=== PATIENT | female | born 1950 | race Caucasian/White ===

== ENCOUNTER 2016-12-02 08:43 | Emergency (ER) | payer MEDICARE | END 2016-12-02 09:10 | disposition home or self-care (01) | LOC: NAV ERS 08:43 | DX: H66.91 Otitis media, unspecified, right ear (principal); E03.9 Hypothyroidism, unspecified; I10 Essential (primary) hypertension; F32.9 Major depressive disorder, single episode, unspecified; Z87.891 Personal history of nicotine dependence; Z79.891 Long term (current) use of opiate analgesic; Z79.899 Other long term (current) drug therapy | CPT/HCPCS: 99282 ==

== ENCOUNTER 2017-01-12 12:13 | Emergency (ER) | payer MEDICARE ==
--- NOTE | 2017-01-12 13:07 | RAD ---
PA AND LATERAL CHEST: History: Cough. FINDINGS: Comparison made with exam of 12-19-14. The heart size is normal. The lungs are well expanded without focal areas of consolidation, pneumoth orax, or pleural effusions. There are post op changes of bilateral shoulder arthroplasty and plate a nd screws in the lower cervical/upper thoracic spine. There are degenerative changes in the thoracic spine. IMPRESSION: No radiographic evidence of acute cardiopulmonary process. POS: [facility]
== END 2017-01-12 13:41 | disposition home or self-care (01) ==
LOC: NAV ERS 12:13
DX: J20.9 Acute bronchitis, unspecified (principal); J06.9 Acute upper respiratory infection, unspecified; E03.9 Hypothyroidism, unspecified; I10 Essential (primary) hypertension; E55.9 Vitamin D deficiency, unspecified; F32.9 Major depressive disorder, single episode, unspecified; Z87.891 Personal history of nicotine dependence; Z79.899 Other long term (current) drug therapy
CPT/HCPCS: 71020; 94640

== ENCOUNTER 2017-08-27 12:01 | Emergency (ER) | payer MEDICARE | END 2017-08-27 13:00 | disposition home or self-care (01) | LOC: NAV ERS 12:01 | DX: M54.12 Radiculopathy, cervical region (principal); I10 Essential (primary) hypertension; E03.9 Hypothyroidism, unspecified; E54 Ascorbic acid deficiency; F41.9 Anxiety disorder, unspecified; F32.9 Major depressive disorder, single episode, unspecified; Z79.891 Long term (current) use of opiate analgesic; Z79.899 Other long term (current) drug therapy | CPT/HCPCS: 96372; J1100; J3010 ==

== ENCOUNTER 2018-01-18 18:53 | Emergency (ER) | payer MEDICARE ==
[2018-01-18 20:15] LABS: Troponin I Less than 0.010 ng/mL (< 0.028)
== END 2018-01-18 20:32 | disposition home or self-care (01) ==
LOC: NAV ERS 18:53
DX: R07.9 Chest pain, unspecified (principal); M79.602 Pain in left arm; I10 Essential (primary) hypertension; E03.9 Hypothyroidism, unspecified; F32.9 Major depressive disorder, single episode, unspecified; Z87.891 Personal history of nicotine dependence; Z79.899 Other long term (current) drug therapy
CPT/HCPCS: 82550; 82553; 84484; 93005

== ENCOUNTER 2018-12-27 10:20 | Emergency (ER) | payer MEDICARE ==
--- NOTE | 2018-12-27 11:16 | RAD ---
RIGHT THUMB 3 VIEWS: Date: 12/27/18 HISTORY: Thumb pain. FINDINGS: No evidence of fracture or dislocation. Mild degenerative changes are seen at the IP joints and first carpometacarpal joint. IMPRESSION: No acute osseous abnormality. POS: AVE
== END 2018-12-27 11:09 | disposition home or self-care (01) ==
LOC: NAV ERS 10:20
DX: S63.601A Unspecified sprain of right thumb, initial encounter (principal); I10 Essential (primary) hypertension; Z87.891 Personal history of nicotine dependence; Z79.899 Other long term (current) drug therapy; X50.9XXA Other and unspecified overexertion or strenuous movements or postures, initial encounter

== ENCOUNTER 2019-09-25 12:54 | Emergency (ER) | payer MEDICARE | END 2019-09-25 14:50 | disposition home or self-care (01) | LOC: NAV ERS 12:54 | DX: B02.9 Zoster without complications (principal); M54.2 Cervicalgia; I10 Essential (primary) hypertension; M79.7 Fibromyalgia; F32.9 Major depressive disorder, single episode, unspecified; Z87.891 Personal history of nicotine dependence; Z79.899 Other long term (current) drug therapy | CPT/HCPCS: 99283 ==

== ENCOUNTER 2019-10-15 10:38 | Emergency (ER) | payer MEDICARE | END 2019-10-15 11:45 | disposition home or self-care (01) | LOC: NAV ERS 10:38 | DX: R04.0 Epistaxis (principal); I10 Essential (primary) hypertension; M79.7 Fibromyalgia; F32.9 Major depressive disorder, single episode, unspecified; Z87.891 Personal history of nicotine dependence; Z79.899 Other long term (current) drug therapy | CPT/HCPCS: 99283 ==

== ENCOUNTER 2020-01-27 16:03 | Emergency (ER) | payer MEDICARE ==
--- NOTE | 2020-01-27 17:35 | RAD ---
PA CHEST RADIOGRAPH WITH TWO VIEWS LEFT RIBS: Date: 01-27-2020 Provided Clinical History: Chest pain status post injury. FINDINGS: Comparison chest radiograph 01-12-2017. Cardiac and mediastinal silhouette is within normal limits. Vascular calcification is again noted. No focal consolidation, pleural fluid, or pneumothorax apparent. No evidence for an acute displaced rib fracture. IMPRESSION: No evidence for an acute process. POS: [facility]
== END 2020-01-27 16:50 | disposition home or self-care (01) ==
LOC: NAV ERS 16:03
DX: S20.212A Contusion of left front wall of thorax, initial encounter (principal); I10 Essential (primary) hypertension; E55.9 Vitamin D deficiency, unspecified; F32.9 Major depressive disorder, single episode, unspecified; Z87.891 Personal history of nicotine dependence; Z79.899 Other long term (current) drug therapy; Z79.1 Long term (current) use of non-steroidal anti-inflammatories (NSAID); W01.0XXA Fall on same level from slipping, tripping and stumbling without subsequent striking against object, initial encounter
CPT/HCPCS: 96372

== ENCOUNTER 2020-07-26 09:52 | Emergency (ER) | payer MEDICARE | END 2020-07-26 10:28 | disposition home or self-care (01) | LOC: NAV ERS 09:52 | DX: J01.90 Acute sinusitis, unspecified (principal); E55.9 Vitamin D deficiency, unspecified; I10 Essential (primary) hypertension; F32.9 Major depressive disorder, single episode, unspecified; Z79.899 Other long term (current) drug therapy; Z87.891 Personal history of nicotine dependence | CPT/HCPCS: 99283 ==

== ENCOUNTER 2021-01-11 11:06 | Emergency (ER) | payer MEDICARE ==
[~2021-01-11 11:06] MED LIST: Iopamidol 370 76% 100 ML VIAL ONE
[2021-01-11 11:57] LABS: #Basophils 0.1 thou/uL (0.0-0.2); #Eosinphils 0.2 thou/uL (0.0-0.7); #Lymphocytes 1.3 thou/uL (1.20-3.40); #Monocytes 0.3 thou/uL (0.11-0.59); #Neutrophils 3.2 thou/uL (1.40-6.50); %Basophils 1.7 % (0.0-1.0); %Eosinophils 3.1 % (0.0-10.0); %Lymphocytes 25.9 % (21.0-51.0); %Monocytes 6.4 % (0.0-10.0); %Neutrophils 62.9 % (42.0-75.0); Hemoglobin 12.4 g/dL (12.0-16.0); Mean Corpuscular HGB CONC 30.9 g/dL (32.0-36.0); Mean Corpuscular Hemoglobin 30.3 pg (27.0-31.0); Mean Corpuscular Volume 98.3 fL (78.0-98.0); Mean Platelet Volume 11.3 fL (7.4-10.4); Platelet Count 152 thou/uL (130-400); RBC Distribution Width 12.3 % (11.5-14.5); Red Blood Cell (RBC) Count 4.09 mill/uL (4.20-5.40); White Blood Cell (WBC) Count 5.1 thou/uL (4.8-10.8)
[2021-01-11 12:02] LABS: ALT (SGPT) 29 U/L (8-55); AST (SGOT) 20 U/L (5-34); Albumin 3.9 g/dL (3.4-4.8); Alkaline Phosphatase 72 U/L (40-110); Anion Gap 16 mmol/L (10-20); BUN (Urea Nitrogen) 13 mg/dL (9.8-20.1); Bilirubin, Total 0.8 mg/dL (0.2-1.2); Calc. Creatinine Clearance 0 mL/min (70-130); Calcium 8.8 mg/dL (7.8-10.44); Carbon Dioxide 22 mmol/L (23-31); Chloride 105 mmol/L (98-107); Globulin 2.4 g/dL (2.4-3.5); Glucose 109 mg/dL (83-110); Lipase 22 U/L (8-78); Protein, Total 6.3 g/dL (5.8-8.1); Sodium 139 mmol/L (136-145)
[2021-01-11 15:25] LABS: Troponin I Less than 0.010 ng/mL (< 0.028)
== END 2021-01-11 15:52 | disposition home or self-care (01) ==
LOC: NAV ERS 11:06
DX: R07.9 Chest pain, unspecified (principal); M54.9 Dorsalgia, unspecified; G89.29 Other chronic pain; I10 Essential (primary) hypertension; Z87.891 Personal history of nicotine dependence; Z79.899 Other long term (current) drug therapy
CPT/HCPCS: 71045; 71275; 74174; 80053; 83690; 84484; 85025; 85379; 93005; 96374; 96375; Q9967

== ENCOUNTER → 2022-10-04 | Emergency (ER) | payer MEDICARE | LOC: NAV ERS 12:24 | DX: M79.662 Pain in left lower leg (principal); I10 Essential (primary) hypertension; Z87.891 Personal history of nicotine dependence | CPT/HCPCS: 99284 ==

== ENCOUNTER 2023-04-10 10:03 | Emergency (ER) | payer MEDICARE | END 2023-04-10 11:41 | disposition home or self-care (01) | LOC: NAV ERS 10:03 | DX: B34.9 Viral infection, unspecified (principal); I10 Essential (primary) hypertension; E55.9 Vitamin D deficiency, unspecified; M79.7 Fibromyalgia; Z87.891 Personal history of nicotine dependence; Z79.899 Other long term (current) drug therapy | CPT/HCPCS: 99283 ==

== ENCOUNTER 2023-12-22 09:22 | Emergency (ER) | payer MEDICARE ==
[2023-12-22] MEDS ORDERED: HYDROcodone/Acetaminophen 5/325 mg Tablet ONE (10:22)
[2023-12-22] MEDS ORDERED: Aspirin Chewable 81 MG TAB ONE (10:22)
[2023-12-22 10:26] LABS: #Basophils 0.1 thou/uL (0.0-0.2); #Eosinphils 0.2 thou/uL (0.0-0.7); #Lymphocytes 1.5 thou/uL (1.20-3.40); #Monocytes 0.4 thou/uL (0.11-0.59); #Neutrophils 4.4 thou/uL (1.40-6.50); %Basophils 1.6 % (0.0-1.0); %Eosinophils 2.8 % (0.0-10.0); %Lymphocytes 23.1 % (21.0-51.0); %Monocytes 6.5 % (0.0-10.0); Hematocrit 42.5 % (36.0-47.0); Mean Corpuscular HGB CONC 32.9 g/dL (32.0-36.0); Mean Corpuscular Hemoglobin 31.4 pg (27.0-31.0); Mean Corpuscular Volume 95.5 fl (78.0-98.0); Mean Platelet Volume 13.4 fL (7.4-10.4); Platelet Count 170 10x3/uL (130-400); RBC Distribution Width 11.5 % (11.5-14.5); Red Blood Cell (RBC) Count 4.45 mill/uL (4.20-5.40); White Blood Cell (WBC) Count 6.6 10x3/uL (4.8-10.8)
[2023-12-22 10:36] LABS: ALT (SGPT) 23 U/L (8-55); AST (SGOT) 20 U/L (5-34); Albumin 4.4 g/dL (3.4-4.8); Alkaline Phosphatase 78 U/L (40-110); Anion Gap 16 mmol/L (10-20); BUN (Urea Nitrogen) 19 mg/dL (9.8-20.1); Calc. Creatinine Clearance 0 mL/min (70-130); Calcium 10.2 mg/dL (7.8-10.44); Carbon Dioxide 25 mmol/L (23-31); Chloride 100 mmol/L (98-107); Estimated GFR 43; Globulin 3.5 g/dL (2.4-3.5); Glucose 92 mg/dL (83-110); Protein, Total 7.9 g/dL (5.8-8.1); Sodium 137 mmol/L (136-145)
[2023-12-22 10:39] LABS: Troponin I Less than 0.010 ng/mL (< 0.028)
== END 2023-12-22 11:45 | disposition home or self-care (01) ==
LOC: NAV ERS 09:22
DX: R07.89 Other chest pain (principal); I10 Essential (primary) hypertension; Z87.891 Personal history of nicotine dependence; Z79.899 Other long term (current) drug therapy
CPT/HCPCS: 71045; 80053; 83880; 84484; 85025; 93005

== ENCOUNTER 2024-04-13 10:11 | Emergency (ER) | payer MEDICARE | END 2024-04-13 10:52 | disposition home or self-care (01) | LOC: NAV ERS 10:11 | DX: I10 Essential (primary) hypertension (principal); I48.92 Unspecified atrial flutter; R42 Dizziness and giddiness; Z87.891 Personal history of nicotine dependence; Z79.899 Other long term (current) drug therapy | CPT/HCPCS: 93005 ==

== ENCOUNTER 2025-07-27 15:08 | Emergency (ER) | payer MEDICARE ==
[2025-07-27] MEDS ORDERED: Nitroglycerin 0.4 MG TAB 1 EACH ONE (15:32)
[2025-07-27 16:02] LABS: #Basophils 0.0 thou/uL (0.0-0.2); #Eosinophils 0.2 thou/uL (0.0-0.7); #Lymphocytes 2.3 thou/uL (1.20-3.40); #Monocytes 0.4 thou/uL (0.11-0.59); #Neutrophils 2.4 thou/uL (1.40-6.50); %Basophils 6.0 % (0.0-1.0); %Eosinophils 3.0 % (0.0-10.0); %Lymphocytes 43.4 % (21.0-51.0); %Monocytes 7.9 % (0.0-10.0); %Neutrophils 45.1 % (42.0-75.0); Hematocrit 38.3 % (36.0-47.0); Hemoglobin 13.1 g/dL (12.0-16.0); Mean Corpuscular Hemoglobin 29.9 pg (27.0-31.0); Mean Corpuscular Volume 87.2 fl (78.0-98.0); Platelet Count 180 10x3/uL (130-400); Red Blood Cell (RBC) Count 4.40 mill/uL (4.20-5.40); White Blood Cell (WBC) Count 5.3 10x3/uL (4.8-10.8)
[2025-07-27 16:06] LABS: ALT (SGPT) 18 U/L (Less than 34); AST (SGOT) 32 U/L (11-34); Albumin 4.3 g/dL (3.1-4.5); Alkaline Phosphatase 111 U/L (40-110); Anion Gap 17 mmol/L (10-20); BUN (Urea Nitrogen) 18 mg/dL (9.8-20.1); Bilirubin, Total 1.0 mg/dL (0.3-1.2); Calc. Creatinine Clearance 0 mL/min (70-130); Calcium 9.3 mg/dL (7.8-10.44); Carbon Dioxide 23 mmol/L (23-31); Chloride 102 mmol/L (98-107); Globulin 3.2 g/dL (2.4-3.5); Glucose 91 mg/dL (83-110); Potassium 4.8 mmol/L (3.5-5.1); Sodium 137 mmol/L (136-145)
[2025-07-27 16:07] LABS: Troponin I Less than 0.010 ng/mL (< 0.028)
== END 2025-07-27 18:29 | disposition home or self-care (01) ==
LOC: NAV ERS 15:08
DX: R07.9 Chest pain, unspecified (principal); R00.1 Bradycardia, unspecified; I10 Essential (primary) hypertension; R93.1 Abnormal findings on diagnostic imaging of heart and coronary circulation; Z87.891 Personal history of nicotine dependence; Z79.899 Other long term (current) drug therapy
CPT/HCPCS: 71045; 80053; 83880; 84484; 85025; 93005; 94760; J7030; Q0162